=== PATIENT | female | born 1965 | race Caucasian/White ===

== ENCOUNTER 2018-01-18 11:53 | Emergency (ER) | payer OTHER, SELFPAY ==
[2018-01-18 12:03] VITALS: BP 126/83; PULSE 77; RESP 16; TEMP 36.6; O2SAT 100
--- NOTE | 2018-01-18 12:34 | ED.GENADUL ---
Disposition Clinical Impression: Periorificial dermatitis Disposition: HOME Condition: Stable Instructions: Dermatitis (ED) Additional Instructions: It is recommended that if you do not want to take her utilize antibiotics that you should perform 0 therapy. This should be clearly defined is nothing applied to the face and to only wash in limited amounts your face with a hypoallergenic soap and clearly rinse any soap residue away. If you begin using the prescribed ointment you should use it twice a day for 1 month. Otherwise follow the recommendations of your urban planning professor and follow-up with them when you return home. Prescriptions: Erythromycin Base/Ethanol [Erythromycin 2% Gel] 60 gm TP BID #1 gel..gram. Referrals: Primary Care Provider [Outside] (Follow-up with your primary care provider or urban planning professor in the next 2 weeks if not improving per) Medical Decision Making - Medical Decision Making Patient presenting to the emergency department for complaint of flareup of her circumoral facial dermatitis. She states that she typically sees a urban planning professor for this but is in the area on vacation. Certified Alcohol And Drug Counselor has recommended that she takes daily doxycycline which she has refused to take due to systemic effects. She states this flareup occurred 5 days ago and she is still in the area for another 4 days and was uncertain what to do. She states that she has tried multiple [id number] treatments which is just made her symptoms worse. Physical exam findings are consistent with perioral dermatitis. Reviewed with patient treatment options which include application of no lotions creams soaps or treatments to the face and to allow the skin to rest versus topical erythromycin ointment. She stated that she would try to allow the skin to rest but would prefer receiving some ointment to see if this does help. She was encouraged to use this ointment for 4 weeks to see if this helps resolve her symptoms and to follow-up with her primary care. There are no signs of anaphylaxis, systemic illness, infectious illness. After discussion of diagnosis and plan of care with patient patient agreed and stated no further needs, questions, or concerns at this time. History of Present Illness - General Chief complaint: RashLesion Stated complaint: rash Time Seen by Provider: 01/18/18 12:10 Source: patient, RN notes reviewed Mode of arrival: ambulatory Limitations: no limitations - History of Present Illness Initial comments: Patient reports on Saturday she began having a flareup of her oral facial dermatitis. She has had this for a while along with rosacea and has been seeing a urban planning professor for this. Her urban planning professor recommended oral doxycycline for 8 weeks which she has been hesitant to use. During this flareup she is been using vitamin E oil, clotrimazole, and loratadine. She is in the area on vacation and did not know what to do to the flareup and significant itching. Patient denies any difficulty breathing, diffuse spreading rash, fever or chills. Onset/Timin -: days(s) Location: face, mouth Severity scale (1-10): 6 Quality: burning (And itching) Consistency: constant Improves with: none Worsens with: none Associated Symptoms: denies other symptoms Treatments Prior to Arrival: other (Vitamin E oil, clotrimazole, apple cider vinegar) - Related Data Erythromycin Base/Ethanol [Erythromycin 2% Gel] 60 gm TP BID #1 gel..gram. 01/18/18 Valacyclovir HCl [Valacyclovir] 500 mg PO DAILY 01/18/18 Allergies Allergy/AdvReac Type Severity Reaction Status Date / Time Penicillins Allergy Intermediate Hives Unverified 01/18/18 12:08 Sulfa (Sulfonamide Allergy Intermediate Hives Unverified 01/18/18 12:08 Antibiotics) Review of Systems Constitutional: denies: chills, fever ENT: denies: throat pain Respiratory: no symptoms reported. denies: shortness of breath, stridor, wheezing Cardiovascular: denies: chest pain Musculoskeletal: denies: joint swelling Skin: as per HPI, pruritus Comment: All other systems reviewed and negative Past Medical History - Past Medical History Herpes, rosacea, perioral/facial dermatitis Surgical history: non-contributory - Social History Smoking status: never smoker Alcohol use: none Drug use: none Living Situation: lives with family (In the area on vacation) General Exam - General Limitations: no limitations General appearance: alert, in no apparent distress - Head Head exam: Present: atraumatic, normocephalic - Eye Eye exam: Present: normal apperance - ENT ENT exam: Present: mucous membranes moist, TM's normal bilaterally, normal external ear exam - Neck Neck exam: Present: normal inspection - Respiratory Respiratory exam: Present: normal lung sounds bilaterally. Absent: respiratory distress - Cardiovascular Cardiovascular Exam: Present: regular rate, normal rhythm, normal heart sounds - Neurological Exam Neurological exam: Present: alert, oriented X3. Absent: altered - Skin Skin exam: Present: warm, intact, erythema (Patient has circumoral mild erythema.). Absent: cyanosis, vesicles, petechiae, pallor Course Vital Signs - 24 hr 01/18/18 12:03 Temperature 36.6 C Pulse 77 Respiratory 16 Rate Blood Pressure 126/83 Pulse Oximetry 100
--- NOTE | 2018-01-18 12:37 | ED.GENADUL_ITS ---
Disposition Clinical Impression: Periorificial dermatitis Disposition: HOME Condition: Stable Instructions: Dermatitis (ED) Additional Instructions: It is recommended that if you do not want to take her utilize antibiotics that you should perform 0 therapy. This should be clearly defined is nothing applied to the face and to only wash in limited amounts your face with a hypoallergenic soap and clearly rinse any soap residue away. If you begin using the prescribed ointment you should use it twice a day for 1 month. Otherwise follow the recommendations of your automobile rental agent and follow-up with them when you return home. Prescriptions: Erythromycin Base/Ethanol [Erythromycin 2% Gel] 60 gm TP BID #1 gel..gram. Referrals: Primary Care Provider [Outside] (Follow-up with your primary care provider or automobile rental agent in the next 2 weeks if not improving per) Medical Decision Making - Medical Decision Making Patient presenting to the emergency department for complaint of flareup of her circumoral facial dermatitis. She states that she typically sees a automobile rental agent for this but is in the area on vacation. Costing Manager has recommended that she takes daily doxycycline which she has refused to take due to systemic effects. She states this flareup occurred 5 days ago and she is still in the area for another 4 days and was uncertain what to do. She states that she has tried multiple [id number] treatments which is just made her symptoms worse. Physical exam findings are consistent with perioral dermatitis. Reviewed with patient treatment options which include application of no lotions creams soaps or treatments to the face and to allow the skin to rest versus topical erythromycin ointment. She stated that she would try to allow the skin to rest but would prefer receiving some ointment to see if this does help. She was encouraged to use this ointment for 4 weeks to see if this helps resolve her symptoms and to follow-up with her primary care. There are no signs of anaphylaxis, systemic illness, infectious illness. After discussion of diagnosis and plan of care with patient patient agreed and stated no further needs, questions, or concerns at this time. History of Present Illness - General Chief complaint: RashLesion Stated complaint: rash Time Seen by Provider: 01/18/18 12:10 Source: patient, RN notes reviewed Mode of arrival: ambulatory Limitations: no limitations - History of Present Illness Initial comments: Patient reports on Saturday she began having a flareup of her oral facial dermatitis. She has had this for a while along with rosacea and has been seeing a automobile rental agent for this. Her automobile rental agent recommended oral doxycycline for 8 weeks which she has been hesitant to use. During this flareup she is been using vitamin E oil, clotrimazole, and loratadine. She is in the area on vacation and did not know what to do to the flareup and significant itching. Patient denies any difficulty breathing, diffuse spreading rash, fever or chills. Onset/Timin -: days(s) Location: face, mouth Severity scale (1-10): 6 Quality: burning (And itching) Consistency: constant Improves with: none Worsens with: none Associated Symptoms: denies other symptoms Treatments Prior to Arrival: other (Vitamin E oil, clotrimazole, apple cider vinegar) - Related Data Erythromycin Base/Ethanol [Erythromycin 2% Gel] 60 gm TP BID #1 gel..gram. 01/18 Valacyclovir HCl [Valacyclovir] 500 mg PO DAILY 01/18/18 Allergies Allergy/AdvReac Type Severity Reaction Status Date / Time Penicillins Allergy Intermediate Hives Unverified 01/18/18 12:08 Sulfa (Sulfonamide Allergy Intermediate Hives Unverified 01/18/18 12:08 Antibiotics) Review of Systems Constitutional: denies: chills, fever ENT: denies: throat pain Respiratory: no symptoms reported. denies: shortness of breath, stridor, wheezing Cardiovascular: denies: chest pain Musculoskeletal: denies: joint swelling Skin: as per HPI, pruritus Comment: All other systems reviewed and negative Past Medical History - Past Medical History Herpes, rosacea, perioral/facial dermatitis Surgical history: non-contributory - Social History Smoking status: never smoker Alcohol use: none Drug use: none Living Situation: lives with family (In the area on vacation) General Exam - General Limitations: no limitations General appearance: alert, in no apparent distress - Head Head exam: Present: atraumatic, normocephalic - Eye Eye exam: Present: normal apperance - ENT ENT exam: Present: mucous membranes moist, TM's normal bilaterally, normal external ear exam - Neck Neck exam: Present: normal inspection - Respiratory Respiratory exam: Present: normal lung sounds bilaterally. Absent: respiratory distress - Cardiovascular Cardiovascular Exam: Present: regular rate, normal rhythm, normal heart sounds - Neurological Exam Neurological exam: Present: alert, oriented X3. Absent: altered - Skin Skin exam: Present: warm, intact, erythema (Patient has circumoral mild erythema.). Absent: cyanosis, vesicles, petechiae, pallor Course Vital Signs - 24 hr 01/18/18 12:03 Temperature 36.6 C Pulse 77 Respiratory 16 Rate Blood Pressure 126/83 Pulse Oximetry 100
== END 2018-01-18 12:46 | disposition home or self-care (01) ==
PROVIDERS: Emergency Provider Emergency Medicine
DX: L71.0 Perioral dermatitis (principal)
CPT/HCPCS: 99283